=== PATIENT | female | born 1960 | race Caucasian/White ===

== ENCOUNTER 2020-11-06 10:28 | Emergency (ER) | payer OTHER ==
[2020-11-06] MEDS: Sodium Chloride 0.9% 10 ML Syringe FLUSH PRN ×2 (11:17→12:26)
--- NOTE | 2020-11-06 12:24 | EDM.PDOC ---
ED HPI GENERAL MEDICAL PROBLEM - General Chief Complaint: Respiratory Problem Stated Complaint: POSS BLOOD CLOT Time Seen by Provider: 11/06/20 10:44 Source of Information: Reports: Patient History Limitations: Reports: No Limitations - History of Present Illness INITIAL COMMENTS - FREE TEXT/NARRATIVE: The patient presents for shortness of breath and elevated D-dimer. The patient said back in December she had COVID 19. Since then she has been short of breath but for the last couple weeks the shortness of breath is worse. She says it is worse with exertion. She says back in September she flew somewhere and developed edema in her left leg. That has never happened before. She still has some swelling in her left leg. She has no chest pain, fever, chills, cough, abdominal pain, nausea or vomiting. She does not smoke. She went to see Makayla Bender and she did labs and the D-dimer came back elevated and Makayla Craven recommended she come here for a CT angio of her chest. Onset: Gradual Duration: Week(s): Severity: Moderate Improves with: Reports: None Worsens with: Reports: None Associated Symptoms: Reports: Shortness of Breath. Denies: Chest Pain, Cough, Fever/Chills, Headaches, Loss of Appetite, Nausea/Vomiting - Related Data Allergies Allergy/AdvReac Type Severity Reaction Status Date / Time No Known Allergies Allergy Verified 11/06/20 10:41 Home Meds: Home Meds . 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 Denies: Cough Cardiovascular: Reports: No Symptoms Endocrine: Reports: No Symptoms GI/Abdominal: Reports: No Symptoms : Reports: No Symptoms Musculoskeletal: Reports: No Symptoms ED EXAM, GENERAL - Physical Exam Exam: See Below Exam Limited By: No Limitations General Appearance: Alert, No Apparent Distress Ears: Normal External Exam Nose: Normal Inspection Head: Atraumatic, Normocephalic Neck: Normal Inspection Respiratory/Chest: No Respiratory Distress, Lungs Clear, Normal Breath Sounds Cardiovascular: Regular Rate, Rhythm, No Edema, No Murmur GI/Abdominal: Soft, Non-Tender, No Organomegaly, No Mass Back Exam: Normal Inspection Extremities: Normal Inspection Neurological: Alert, Oriented, No Motor/Sensory Deficits #1 Interpretation EKG Date: 11/06/20 Time: 11:08 Rhythm: NSR Rate (Beats/Min): 75 [place]: Normal P-Wave: Present QRS: Normal ST-T: Other (Flattened T waves in the anterolateral leads) Course - Vital Signs Last Recorded V/S: Last Vital Signs Temp 97.2 F 11/06/20 10:38 Pulse 77 11/06/20 10:38 Resp 16 11/06/20 10:38 BP 140/120 H 11/06/20 10:38 Pulse Ox 97 11/06/20 10:38 - Orders/Labs/Meds Orders: Active Orders 24 hr Category Date Time Status Cardiac Monitoring [RC] . DIRECTED Care 11/06/20 10:58 Active EKG Documentation Completion [RC] STAT Care 11/06/20 10:59 Active Peripheral IV Care [RC] . DIRECTED Care 11/06/20 10:59 Active Ang Chest [CT] Stat Exams 11/06/20 11:00 Taken VL Duplex Lwr Ext Veins Ltd Lt [US] Stat Exams 11/06/20 10:59 Taken Sodium Chloride 0.9% [Saline Flush] Med 11/06/20 10:58 Active 10 ml FLUSH ASDIRECTED PRN Peripheral IV Insertion Adult [OM.PC] Stat Oth 11/06/20 10:58 Ordered Medication Orders Sodium Chloride (Sodium Chloride 0.9% 10 Ml Syringe) 10 ml FLUSH ASDIRECTED PRN PRN Reason: Keep Vein Open Last Admin: 11/06/20 12:26 Dose: 10 ml Documented by: Admin: 11/06/20 11:17 Dose: 10 ml Documented by: REJI Labs: Laboratory Tests 11/06/20 11/06/20 Range/Units 11:15 11:15 WBC 5.28 (3.98-10.04) K/mm3 RBC 4.28 (3.98-5.22) M/mm3 Hgb 13.0 (11.2-15.7) gm/dl Hct 39.3 (34.1-44.9) % MCV 91.8 (79.4-94.8) fl MCH 30.4 (25.6-32.2) pg MCHC 33.1 (32.2-35.5) g/dl RDW Std Deviation 42.2 (36.4-46.3) fL Plt Count 300 (182-369) K/mm3 MPV 9.0 L (9.4-12.3) fl Neut % (Auto) 32.7 L (34.0-71.1) % Lymph % (Auto) 52.3 H (19.3-51.7) % [place] % (Auto) 10.2 (4.7-12.5) % Eos % (Auto) 4.2 (0.7-5.8) Baso % (Auto) 0.4 (0.1-1.2) % Neut # (Auto) 1.73 (1.56-6.13) K/mm3 Lymph # (Auto) 2.76 (1.18-3.74) K/mm3 [place] # (Auto) 0.54 H (0.24-0.36) K/mm3 Eos # (Auto) 0.22 (0.04-0.36) K/mm3 Baso # (Auto) 0.02 (0.01-0.08) K/mm3 Sodium 142 (136-145) mEq/L Potassium 4.4 (3.5-5.1) mEq/L Chloride 107 (98-107) mEq/L Carbon Dioxide 28 (21-32) mEq/L Anion Gap 11.4 (5-15) BUN 10 (7-18) mg/dL Creatinine 0.9 (0.55-1.02) mg/dL Est Cr Clr Drug Dosing 60.56 mL/min Estimated GFR (MDRD) > 60 (>60) mL/min BUN/Creatinine Ratio 11.1 L (14-18) Glucose 134 H (70-99) mg/dL Calcium 8.7 (8.5-10.1) mg/dL Total Bilirubin 0.8 (0.2-1.0) mg/dL AST 13 L (15-37) U/L ALT 30 (14-59) U/L Alkaline Phosphatase 72 (46-116) U/L Troponin I < 0.017 (0.00-0.056) ng/mL Total Protein 7.2 (6.4-8.2) g/dl Albumin 3.7 (3.4-5.0) g/dl Globulin 3.5 gm/dL Albumin/Globulin Ratio 1.1 (1-2) Meds: Medications Generic Name Dose Route Start Last Admin Trade Name Freoswaldo PRN Reason Stop Dose Admin Sodium Chloride 10 ml 11/06/20 10:58 11/06/20 12:26 Sodium Chloride 0.9% 10 Ml Syringe FLUSH 10 ml ASDIRECTED PRN Administration Keep Vein Open Discontinued Medications Generic Name Dose Route Start Last Admin Trade Name Freq PRN Reason Stop Dose Admin Sodium Chloride 100 mls @ 4 mls/sec 11/06/20 12:25 Normal Saline IV 11/06/20 12:26 ONETIME ONE Iopamidol 100 ml 11/06/20 12:25 11/06/20 12:26 Iopamidol 755 Mg/Ml 100 Ml Bottle IVPUSH 11/06/20 12:26 100 ml ONETIME ONE Administration - Re-Assessments/Exams Free Text/Narrative Re-Assessment/Exam: 11/06/20 12:29 I ordered an IV saline lock, EKG, CT angio of her chest, an an US of the left leg and labs. Her EKG shows a NSR with no acute changes. Her CBC looks good. Her glucose was slightly elevated at 134. Her troponin is negative. 11/06/20 12:44 The US of her leg shows no evidence of DVT. The CT angio of her chest shows no pulmonary embolism identified. Small esophageal hiatal hernia. I will discharge her home and follow up with Makayla Bender for further work up. Departure - Departure Time of Disposition: 12:50 Disposition: Home, Self-Care 01 Condition: Good Clinical Impression: Dyspnea Qualifiers: Dyspnea type: shortness of breath Qualified Code(s): R06.02 - Shortness of breath; R06.00 - Dyspnea, unspecified; R06.01 - Orthopnea - Discharge Information *PRESCRIPTION DRUG MONITORING PROGRAM REVIEWED*: Not Applicable *COPY OF PRESCRIPTION DRUG MONITORING REPORT IN PATIENT EMI: Not Applicable Referrals: Lida Leung NP [Primary Care Provider] - 1 Week Forms: ED Department Discharge Additional Instructions: Follow up with your provider within a week. Please return if you are worse. Sepsis Event Note (ED) - Evaluation Sepsis Screening Result: No Definite Risk - Focused Exam Vital Signs: Vital Signs Temp Pulse Resp BP Pulse Ox 11/06/20 10:38 97.2 F 77 16 140/120 H 97 - My Orders Last 24 Hours: My Active Orders 11/06/20 10:58 Cardiac Monitoring [RC] . DIRECTED Sodium Chloride 0.9% [Saline Flush] 10 ml FLUSH ASDIRECTED PRN Peripheral IV Insertion Adult [OM.PC] Stat 11/06/20 10:59 EKG Documentation Completion [RC] STAT Peripheral IV Care [RC] . DIRECTED VL Duplex Lwr Ext Veins Ltd Lt [US] Stat 11/06/20 11:00 Ang Chest [CT] Stat - Assessment/Plan Last 24 Hours: My Active Orders 11/06/20 10:58 Cardiac Monitoring [RC] . DIRECTED Sodium Chloride 0.9% [Saline Flush] 10 ml FLUSH ASDIRECTED PRN Peripheral IV Insertion Adult [OM.PC] Stat 11/06/20 10:59 EKG Documentation Completion [RC] STAT Peripheral IV Care [RC] . DIRECTED VL Duplex Lwr Ext Veins Ltd Lt [US] Stat 11/06/20 11:00 Ang Chest [CT] Stat
[2020-11-06] MEDS ORDERED: Sodium Chloride 0.9% 100 ML IV ONE (12:25)
[2020-11-06] MEDS ORDERED: Iopamidol 755 Mg/ML 100 ML Bottle IVPUSH ONE (12:25)
--- NOTE | 2020-11-07 07:38 | CT ---
CT chest Technique: Multiple axial sections were obtained from above the lung apices inferiorly through the lung bases. Intravenous contrast was utilized. Study has been performed as a pulmonary angiogram protocol. Comparison: No prior chest imaging is available. Findings: Pulmonary arteries are well opacified. No filling defects are seen to indicate pulmonary embolism. Thoracic aorta shows no aneurysm. No mediastinal or hilar adenopathy or mass is seen. No pericardial thickening is noted. Visualized upper abdominal structures show no acute abnormality. Small hiatal hernia is present. Lung window settings were reviewed which show no acute parenchymal change. No pleural effusions or pneumothorax is seen. Bone window settings were reviewed which show slight scattered degenerative change within the spine. No acute osseous abnormality is appreciated. Impression: 1. Incidental findings as noted above. 2. No findings of pulmonary embolism. Nothing acute is appreciated on CT study of the chest. Diagnostic code #2 I agree with preliminary report from [facility], finalized on 11/06/20, 1:33 PM CDT, code 1
--- NOTE | 2020-11-07 09:03 | US ---
Left lower extremity deep venous ultrasound: Duplex and color Doppler evaluation was obtained of the left common femoral, superficial femoral, popliteal, posterior tibial and peroneal veins. Right common femoral vein was also evaluated. Comparison: No prior venous imaging is available. Findings: Normal phasic flow, augmentation and compression are seen. Impression: 1. No evidence of deep venous thrombosis within the left lower extremity or within the right common femoral vein. Diagnostic code #1 I agree with preliminary report from [facility], finalized on 11/06/20, 1:39 PM CDT, code 1
== END 2020-11-06 13:04 | disposition home or self-care (01) ==
LOC: JD.ED 10:28
DX: R06.02 Shortness of breath (principal); R06.01 Orthopnea; Z86.16 Personal history of COVID-19
CPT/HCPCS: 36415; 71275; 80053; 84484; 85025; 93005; 93971; 99285; Q9967; 93010; 99284